=== PATIENT | male | born 1935 | race Caucasian/White ===

== ENCOUNTER 2022-04-24 06:17 | Day surgery (SDC) | payer MEDICARE, OTHER ==
[~2022-04-24] VITALS: Ht 165.1 cm; Wt 72.7 kg
[2022-04-24] MEDS ORDERED: LIDOCAINE 4% 50 ML SOLUTION TP ONE (06:18)
[2022-04-24] MEDS ORDERED: BENZOCAINE 20% 50 MCG/SPRAY 57 GM TP ONE (06:18)
[2022-04-24] MEDS ORDERED: LIDOCAINE 2% 11 ML JELLY TP ONE (06:18)
[2022-04-24] MEDS ORDERED: SODIUM CHLORIDE 0.9% 1,000 ML IV ONE (06:30)
[2022-04-24 07:06] LABS: COVID AG,FIA SOURCE NASAL SWAB
[2022-04-24] MEDS ORDERED: SODIUM CHLORIDE 0.9% 1,000 ML ONE (07:30)
[2022-04-24] MEDS ORDERED: FentaNYL CITRATE PF 100 MCG/2 ML VIAL ONE (07:55)
[2022-04-24] MEDS ORDERED: MIDAZOLAM HCL 5 MG/ML VIAL ONE (07:55)
[2022-04-24] MEDS ORDERED: AMLO-257 PO (08:06)
[2022-04-24] MEDS ORDERED: FINA-27 PO (08:06)
[2022-04-24] MEDS ORDERED: ATOR40TA28 PO (08:06)
[2022-04-24] MEDS ORDERED: MONT-35 PO (08:06)
[2022-04-24] MEDS ORDERED: TAMS-13 PO (08:06)
[2022-04-24] MEDS ORDERED: FAMO20 PO (08:06)
[2022-04-24 08:11] LABS: GLUCOMETER DEV NAME(LOC) SDS.; GLUCOSE,POINT OF CARE 125 MG/DL (70-110)
[2022-04-24] MEDS ORDERED: MethylPREDNISolone SOD SUCC 125 MG/2 ML VIAL ONE (08:47)
[2022-04-24] MEDS ORDERED: MethylPREDNISolone SOD SUCC 125 MG/2 ML VIAL IVP ONE (09:00)
[2022-04-24] MEDS ORDERED: OXYGEN THERAPY IH SCH (20:00)
== END 2022-04-24 10:30 | disposition home or self-care (01) ==
LOC: SURGERY 06:17
PROVIDERS: ATTEND Internal Medicine Critical Care Medicine
DX: J38.4 Edema of larynx (principal); B37.0 Candidal stomatitis; Z79.899 Other long term (current) drug therapy; Z98.890 Other specified postprocedural states; Z88.8 Allergy status to other drugs, medicaments and biological substances; I10 Essential (primary) hypertension; Z98.49 Cataract extraction status, unspecified eye
CPT/HCPCS: 31623; 82962; 87206; 87101; 87220; 87070; 88108; 88305; 88312; 31624; 71045; 87015; 87426; 93005; J3010; J2930; J2250; Q9967; J7030; C9803; Z7610